=== PATIENT | male | born 1940 | race Caucasian/White ===

== ENCOUNTER 2017-01-07 11:48 | Emergency (ER) | payer MEDICARE, OTHER ==
[~2017-01-07] VITALS: Ht 180.3 cm; Wt 104.5 kg
[~2017-01-07 11:48] MED LIST: ALPR-138 PO; ASPI81 PO; CLOP75 PO; FISH1000 PO; GABA300 PO; GLUC500C56 PO; LISI10TA PO; MONT10TA2 PO; OMEP20CA5 PO; PRIM50TA PO; SERT50 PO; SIMV20 PO; SUPETAB30 PO; SYMBICORT; TOPR50TA PO; VENTAER INH; VITA100017 PO
[2017-01-07 11:50] VITALS: BP 164/73; PULSE 60; RESP 18; TEMP 98.8; O2SAT 98
--- NOTE | 2017-01-07 11:59 | PD ---
Physical Exam Date Seen by Provider: Jan 07, 2017 Time Seen by Provider: 11:56 Narrative 76 y/o male presents with hx. lower back pain for the past month, but recently worse. Hx. 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 Pain radiates into right buttock. Denies weakness. Pain 10/10 at times. Vital signs reviewed. Patient stable. Awaiting Bed placement. Data Data Last Documented VS Vital Signs Date Time Temp Pulse Resp B/P Pulse Ox O2 Delivery O2 Flow Rate FiO2 01/07/17 11:50 98.8 60 18 164/73 98 MDM Medical Record Reviewed: Yes Supervised Visit with WILL: Yes Condition: Stable [place] Jan 07, 2017 11:59
--- NOTE | 2017-01-07 12:41 | PD ---
HPI Chief Complaint: Back/ Neck Pain or Injury Time Seen by Provider: 12:39 Travel History International Travel<30 days: No Contact w/Intl Traveler<30days: No Traveled to known affect area: No History of Present Illness HPI 76 YO M with PMH of HTN, and a spinal stenosis L4-L5, right lumbosacral radiculopathy presents to the ED for evaluation of "a few weeks" history of right buttock and low back pain. Worsening to 10/10 over the last few days. Patient states it's relieved by normal, gentle activities and worsened by periods of rest. He also notes that attempting to rise from lying down causes a spasming of the pain. He denies radiation down the leg, numbness, tingling, weakness in the lower extremities. He denies urinary or fecal incontinence. He denies fevers, chills, nausea, vomiting, dysuria, hematuria. He states this pain is similar to previous episodes of radiculopathy. He has a follow-up appointment with Dr. Edmond in 2 weeks. PFSH Past Medical History Diabetes: No Glaucoma: No Hepatitis: No Hiatal Hernia: No Hypertension: Yes Thyroid Disease: No Past Surgical History Cardiac Surgery: Yes (ANGIOPLASTY STENTS) Genitourinary Surgery: Yes (BILATERAL INGUINAL HERNIA) Pacemaker: No Social History Alcohol Use: Yes (OCC BEER) Tobacco Use: Yes (STOPPED 1966) Allergies-Medications (Allergen,Severity, Reaction): Coded Allergies: No Known Allergies (Verified , 01/07/17) Reported Meds & Prescriptions Reported Meds & Active Scripts Active Robaxin (Methocarbamol) 500 Mg Tab 500 Mg PO TID Lortab (Hydrocodone-Acetaminophen) 5-325 Mg Tab 1 Tab PO Q6H PRN Reported Pradaxa (Dabigatran) 150 Mg Cap 150 Mg PO BID Probiotic (Lactobacillus Acidophilus) 1 Cap Cap 1 Cap PO BID Nitroglycerin SL (Nitroglycerin) 0.4 Mg Subl 0.4 Mg SL DIRECTED PRN ONE TABLET UNDER THE TONGUE NEEDED FOR CHEST PAIN, MAY REPEAT EVERY FIVE MINUTES FOR A TOTAL OF 3 DOSES OR CALL 911 IF NO RELIEF Proventil Hfa 6.7 GM Inh (Albuterol Sulfate) 90 Mcg/Act Aer 1 Puff INH Q4H PRN Aspirin 81 (Aspirin) 81 Mg Tabdr 81 Mg PO DAILY Vitamin C (Ascorbic Acid) 250 Mg Tab 500 Mg PO DAILY Folic Acid 400 Mcg Tab 400 Mcg PO DAILY Multi For Him 50+ (Multiple Vitamins W/ Minerals) 1 Tab Tab 1 Tab PO DAILY Super B Complex (Vitamin B Complex Vit C No.4) 150 Mg Tablet 1 Tab PO DAILY Potassium Gluconate 550 Mg Tab 550 Tab PO DAILY Allergy (Loratadine) 10 Mg Tab 10 Mg PO DAILY Gabapentin 300 Mg Cap 300 Mg PO TID Omeprazole 20 Mg Tab 20 Mg PO DAILY Lisinopril-Hctz 10-12.5 Mg Tab 1 Tab PO DAILY Sertraline (Sertraline HCl) 100 Mg Tab 125 Mg PO DAILY Singulair (Montelukast Sodium) 10 Mg Tab 10 Mg PO HS Simvastatin 20 Mg Tab 20 Mg PO DAILY Review of Systems Except as stated in HPI: all other systems reviewed are Neg Physical Exam Narrative GENERAL: Well-nourished, well-developed white male in no acute distress.. SKIN: Focused skin assessment warm/dry. HEAD: Normocephalic. EYES: No scleral icterus. No injection or drainage. NECK: Supple, trachea midline. No JVD or lymphadenopathy. CARDIOVASCULAR: Regular rate and rhythm without murmurs, gallops, or rubs. RESPIRATORY: Breath sounds equal bilaterally. No accessory muscle use. GASTROINTESTINAL: Abdomen soft, non-tender, nondistended. MUSCULOSKELETAL: No cyanosis, or edema. NEUROLOGICAL: 5/5 strength of dorsiflexion, plantarflexion, hip flexion bilaterally. Right-sided straight leg raise elicits pain. Neurovascularly intact. BACK: Nontender without obvious deformity. No CVA tenderness. No midline tenderness to palpation. Data Data Last Documented VS Vital Signs Date Time Temp Pulse Resp B/P Pulse Ox O2 Delivery O2 Flow Rate FiO2 01/07/17 11:50 98.8 60 18 164/73 98 Orders Ketorolac Inj (Toradol Inj) (01/07/17 13:00) Orphenadrine Inj (Norflex Inj) (01/07/17 13:00) Acetamin-Hydrocod 325-5 Mg ([place] 5-325 (01/07/17 13:00) MDM Medical Decision Making Medical Screen Exam Complete: Yes Emergency Medical Condition: Yes Differential Diagnosis Acute on chronic low back pain versus radiculopathy versus spinal stenosis versus musculoskeletal pain versus muscle spasm versus other Narrative Course 76 YO M with PMH of HTN, and a spinal stenosis L4-L5, right lumbosacral radiculopathy presents to the ED for evaluation of "a few weeks" history of right buttock and low back pain. Worsening to 10/10 over the last few days, relieved by normal, gentle activities and worsened by periods of rest and attempting to rise from lying down. He denies radiation down the leg, numbness, tingling, weakness in the lower extremities, urinary or fecal incontinence, fevers, chills, nausea, vomiting, dysuria, hematuria. He states this pain is similar to previous episodes of radiculopathy. Vitals reviewed. Physical exam reveals a nontoxic-appearing white male in no acute distress. ++tenderness to palpation of the sciatic notch without midline tenderness, lower extremity weakness. Positive right leg raise test. He has several spasms of pain while performing physical tests. He was administered IM Toradol and Norflex. He deferred a 5 mg Lortab. On recheck he reports improvement of the symptoms. This is radiculopathy and muscle spasm. Patient was prescribed short course of Lortab and muscle relaxants. He is cautioned not to take muscle relaxants while driving. He is instructed to return to normal, gentle activity as tolerated, follow up with Dr. Edmond as planned. He indicated understanding of instructions. He is stable and discharged home. Diagnosis Primary Impression: Right lumbosacral radiculopathy Additional Impression: Muscle spasm of back Referrals: Meng Sanchez MD Patient Instructions: General Instructions, Muscle Spasm (ED), Sciatica (ED) Additional Instructions: Hydrate. A mixture of rest and activity as best for back pain. Return to normal, gentle activities as tolerated. Take anti-inflammatories and muscle relaxants as prescribed. Do not drive while taking muscle relaxants. Warm compresses applied to area of pain may help to improve your symptoms. Gentle massage of the area of pain may also help to improve your symptoms Follow-up with Dr. Edmond as planned. Return to the ED for worsening symptoms or any urgent or emergent medical condition. Med/Other Pt SpecificInfo: Prescription(s) given Scripts Methocarbamol (Robaxin)500 Mg Nml322 Mg PO TID #15 TAB Ref 0 Prov:Lazarus Kilpatrick MD 01/07/17 Hydrocodone-Acetaminophen (Lortab)5-325 Mg Tab1 Tab PO Q6H PRN (PAIN) #10 TAB Ref 0 Prov:Lazarus Kilpatrick MD 01/07/17 Disposition: 01 DISCHARGE HOME Condition: Stable Geri Awad Jan 07, 2017 12:41
[2017-01-07] MEDS ORDERED: ACETAMINOPHEN/HYDROcodone 325 MG/5 MG TAB PO ONE (13:00)
[2017-01-07] MEDS ORDERED: KETOROLAC TROMETHAMINE 60 MG/2 ML (IM) VIAL IM ONE (13:00)
[2017-01-07] MEDS ORDERED: ORPHENADRINE INJ 60 MG/2 ML AMP IM ONE (13:00)
[2017-01-07] MEDS ORDERED: OMEP20TA PO (13:04)
[2017-01-07] MEDS ORDERED: VITA250T3 PO (13:04)
[2017-01-07] MEDS ORDERED: SERT-129 PO (13:04)
[2017-01-07] MEDS ORDERED: LACTCAP8 PO (13:04)
[2017-01-07] MEDS ORDERED: ALLE10TA10 PO (13:04)
[2017-01-07] MEDS ORDERED: ASPI-110 PO (13:04)
[2017-01-07] MEDS ORDERED: MULTTAB23 PO (13:04)
[2017-01-07] MEDS ORDERED: POTA2.5T PO (13:04)
[2017-01-07] MEDS ORDERED: LISI10TA PO (13:04)
[2017-01-07] MEDS ORDERED: GABA300C5 PO (13:04)
[2017-01-07] MEDS ORDERED: MONT10TA2 PO (13:04)
[2017-01-07] MEDS ORDERED: FOLI400T PO (13:04)
[2017-01-07] MEDS ORDERED: ALBU6.7H INH (13:04)
[2017-01-07] MEDS ORDERED: SIMV20TA PO (13:04)
[2017-01-07] MEDS ORDERED: VITA150T PO (13:04)
[2017-01-07] MEDS ORDERED: PRAD150C PO (13:04)
[2017-01-07] MEDS ORDERED: NITR1SUB3 SL (13:04)
[2017-01-07] MEDS ORDERED: HYDR-3533 PO (13:37)
[2017-01-07] MEDS ORDERED: ROBA500T PO (13:37)
== END 2017-01-07 14:05 | disposition home or self-care (01) ==
LOC: NEPD 11:48
DX: M54.17 Radiculopathy, lumbosacral region (principal); M62.830 Muscle spasm of back; M48.06 Spinal stenosis, lumbar region; I10 Essential (primary) hypertension
CPT/HCPCS: 96372; 99284; J1885; J2360